=== PATIENT | male | born 2000 | race Caucasian/White ===

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

== ENCOUNTER 2023-06-20 13:59 | Outpatient (REF) | payer BC, SELFPAY ==
[2023-06-20 14:51] LABS: Source Nasal/Nares
[2023-06-20 16:22] LABS: COVID-19 PCR Negative (Negative)
== END 2023-06-20 14:00 | disposition home or self-care (01) ==
LOC: NCHCN 13:59
PROVIDERS: Visit Provider Physician Assistant Medical
DX: R05.8 Other specified cough (principal)
CPT/HCPCS: 87635

== ENCOUNTER 2023-09-14 17:21 | Emergency (ER) | payer OTHER, SELFPAY ==
[2023-09-14 17:26] VITALS: BP 155/84; PULSE 73; RESP 16; TEMP 36.7; O2SAT 100
--- NOTE | 2023-09-14 17:36 | W.ED.GENAD ---
HPI General Stated Complaint: HeadInjury ARDEN: 4 Date/Time Provider Initiated Documentation: 09/14/23 17:33. HPI Narrative: 23 year-old male presents to ED today by POV/ambulating with a chief complaint of hit the crown of his head on shelving this morning- wondering if he has a concussion. Quality described as generalized mild headache, eye pain, fogginess, no radiation to visual changes, vomiting, numbness/tingling, lethargy, endorses mild nausea for <60 minutes after the injury. Severity is described as mild to moderate. Palliating factors include nothing attempted. Provoking factors include nothing specific. Patient not anticoagulated. Related Data Home Medications Medication Instructions Recorded Confirmed Unknown [No Known Home Meds] 09/14/23 09/14/23 Allergies Allergy/AdvReac Type Severity Reaction Status Date / Time erythromycin ethylsuccinate Allergy Intermediate UNKNOWN Verified 09/14/23 17:28 [From Pediazole] sulfisoxazole acetyl Allergy Intermediate UNKNOWN Verified 09/14/23 17:28 [From Pediazole] Review of Systems All systems reviewed & are unremarkable except as noted in HPI and below PFSH All Active Problems (Updated 09/14/23 @ 17:38 by LES Gilman) Concussion syndrome (Acute) Burn of finger of right hand, second degree (Acute) Peyronie's disease (Acute) Routine child health exam (Acute 02/12/13) Pediatric body mass index (BMI) of 5th percentile to less than 85th percentile for age (Acute 04/03/16) Learning difficulty (Acute 02/12/13) IEP in place signed 12/08/2018 Attention deficit hyperactivity disorder (ADHD), combined type (Acute 08/01/16) Medical History (Updated 09/14/23 @ 17:38 by LES Gilman) learning issues IEP Pneumonia ADHD (attention deficit hyperactivity disorder) Ear ache Surgical History Circumcision Family History Mother No problems noted. Father [place]-Schlatter's disease Diabetes Hyperlipidemia Grandparent Diabetes Social History Smoking/Tobacco Use Status: Never Second Hand Exposure: Yes Smoking risk assessment performed?: Yes Alcohol Intake: never Drug use: Never Substance use type: does not use Exam Narrative Exam Narrative: GENERAL APPEARANCE: Well-nourished, non-toxic, awake and alert, atraumatic, no acute distress. SKIN: Warm, pink, dry, intact, without rashes/lesions/ulcerations. HEAD: Normocephalic, atraumatic- no scalp hematoma at site of injury on crown of head, no periorbital ecchymosis, normal hair distribution for gender/age. EYES: Pupils PERRLA, EOMs intact without nystagmus, normal conjunctiva, no exudates on lids/lashes. ENT: Nares patent, no circumoral cyanosis, no facial swelling NECK: Supple, trachea midline, painless cervical ROM. LUNGS/CHEST: Non-labored respirations, normal A/P diameter, symmetrical expansion, no chest wall deformity HEART (CV/PV): No peripheral edema, no JVD. ABDOMEN: Soft, non-distended, no guarding. MSK: Normal ROM, no swelling/deformity to bilateral UEs or LEs, moving all extremities without weakness, no cyanosis, spine midline without tenderness, normal curvature. NEURO: Mental Status AAOx4 - alert to person, place, time, events No facial droop, no forehead involvement. Motor: No focal weakness - strength 5/5 in bilateral UEs and LEs, proximal and distal, symmetric. Sensory: sensation intact to light touch globally. Gait normal: patient ambulated without ataxia into ED room. PSYCH: euthymic, cooperative, pleasant, appropriate speech Course Vital Signs Vital signs: Vital Signs Temperature 36.7 C 09/14/23 17:26 Pulse 73 09/14/23 17:26 Respiratory Rate 16 09/14/23 17:26 Blood Pressure 155/84 H 09/14/23 17:26 Pulse Oximetry 100 09/14/23 17:26 Temperature 36.7 C 09/14/23 17:26 Temperature Source Temporal Artery Scan 09/14/23 17:26 Pulse 73 09/14/23 17:26 Respiratory Rate 16 09/14/23 17:26 Respiratory Effort Normal, Non-Labored 09/14/23 17:28 Blood Pressure 155/84 H 09/14/23 17:26 Blood Pressure Position Sitting 09/14/23 17:26 Pulse Oximetry 100 09/14/23 17:26 Oxygen Delivery Method Room Air 09/14/23 17:26 Oxygen Flow Rate 0 09/14/23 17:26 Medical Decision Making This dictation utilizes [id number] dictation software and may contain unedited grammatical errors. 23 y/o M presents to ED today with a chief complaint of bumped his head on shelving earlier this morning, hours ago, complains of mild headache and eye pain, asking if he has a concussion. Patient endorsed nausea post-incident but denies vomiting, no repetitive questioning in history taking, no other complaints. Patients' medical history: negative, otherwise healthy. Family and social history: noncontributory. Pertinent exam findings / vital signs include no scalp hematoma, no neurological abnormality. Differential / pathologies of concern include Concussion Syndrome. Diagnostic studies of: -none, does not meet [place] criteria. Interventions of: -none. ED Course/Assessment/Plan: Healthy 23-year-old male seen with a minor bump on the head earlier this morning, wondering if he has a concussion, he has a mild headache and some eye discomfort but no visual changes, no neurologic abnormalities and has been greater than 4 hours since incident. I counseled him that there is no test for concussion and that he may have a mild concussion but the only recommendation would be to take Tylenol and ibuprofen and perform brain rest activities. Findings not consistent with intracranial pathology, neurologic abnormality. Disposition of Concussion Syndrome. Patient verbalized understanding of the plan and return to ED criteria and engaged in shared decision making. Medical Records Medical records reviewed: Yes I reviewed the patient's medical records. Quality:SDOH Health Related Social Needs: No Data to Display Discharge Plan Disposition Patient Disposition: Home Discharge Details Clinical Impression: Concussion syndrome Primary Care Provider: None,None ED Provider: Merlin Motta Home Meds and New Rx's Prescriptions: No Action No Known Home Meds Discharge Instructions Instructions: Concussion (ED) Additional Instructions: You were seen in the emergency department for hitting her head earlier today with some nausea, there was no episodes of vomiting reported, you are speaking in clear sentences, you report some eye discomfort and a headache, this is likely a concussion but there is no test to confirm the presence of a concussion, CT scans do not show concussions, there is very low likelihood of any intracranial emergent process going on as it has been a significant amount of time without neurological deficits since the incident. Please use therapeutic dosing of Tylenol (acetamenophen) & Advil (ibuprofen) in an alternating fashion as follows: Take 1000mg of Tylenol every 6 hours without missing doses- that is 4 times per day. Barton in between the Tylenol dosings, take 400-600mg of Advil also on a 6 hour schedule, that is also 4 times per day. The daily maximum dosing of Tylenol is 4000mg, and the daily maximum dosing of Advil is 2400mg. This is safe to do for weeks. Please note that some common cold medications & prescription pain medications may contain acetamenophen and you need to read OTC drug labels and factor that in to maximum daily dosings. Perform brain rest activities like limiting screen time, staying in a dimly lit in quiet environments, do not overstrain yourself with excessive concentrate of activities like reading. Please return for any slurred speech, repetitive questioning, onset of intractable vomiting, loss of vision or other severe visual changes. Discharge Data Discharge Date/Time-TO BE ENTERED AT DEPARTURE: 09/14/23 17:46
== END 2023-09-14 17:46 | disposition home or self-care (01) ==
PROVIDERS: Emergency Provider Physician Assistant
DX: F07.81 Postconcussional syndrome (principal); H57.13 Ocular pain, bilateral; R41.9 Unspecified symptoms and signs involving cognitive functions and awareness; W22.8XXA Striking against or struck by other objects, initial encounter
CPT/HCPCS: 99282; 99283

== ENCOUNTER 2023-11-07 14:47 | Outpatient (REF) | payer BC, SELFPAY ==
[2023-11-07 15:54] LABS: Source Nasal/Nares
[2023-11-07 17:27] LABS: COVID-19 PCR Negative (Negative)
== END 2023-11-07 14:48 | disposition home or self-care (01) ==
LOC: LBN 14:47
PROVIDERS: Referring Provider Physician Assistant Medical; Visit Provider Physician Assistant Medical
DX: Z20.822 Contact with and (suspected) exposure to COVID-19 (principal)
CPT/HCPCS: 87635